=== PATIENT | female | born 1965 | race Two or more races ===

== ENCOUNTER 2018-08-13 12:14 | Emergency (ER) | payer OTHER ==
[~2018-08-13] VITALS: Ht 152.4 cm; Wt 91.3 kg
[2018-08-13 12:18] VITALS: BP 149/95
== END 2018-08-13 12:44 | disposition home or self-care (01) ==
LOC: ED 12:38
DX: S61.217A Laceration without foreign body of left little finger without damage to nail, initial encounter (principal)
CPT/HCPCS: 99281